=== PATIENT | male | born 1965 ===

== ENCOUNTER 2021-05-21 15:19 | Outpatient (CLI) | payer OTHER, SELFPAY ==
--- NOTE | 2021-06-13 13:44 | WPDHOMESLEEP ---
Sleep Study - Home Unattended Date of Study: 05/21/21 Ordering Provider: Celio Dhaliwal MD Interpreting Provider: Andria Jackson MD Home Sleep Study Type: Apnea Link Air Height: 1.73 m Weight: 79.379 kg Body Mass Index: 26.6 Neck Circumference (inches): 17 [place]: 6 Reason for Sleep Study Constant loud snoring, frequent awakenings at night Sleep History Eyad Luis is a 56-year-old man who has constant awakenings at night for shortness of breath, awakenings at night with heartburn, belching or coughing, loud snoring, trouble sleeping with a cold and gasping during the night. He constantly sweats excessively at night. He frequently notices his heart pounding excessively at night. He occasionally falls asleep during the day, occasionally involuntarily never while driving. He does not have loss of muscle tone with strong emotion. He does not feel paralyzed on waking or falling asleep. He occasionally has vivid dreamlike scenes upon awakening or falling asleep. He does not feel afraid to go to sleep. He occasionally has nightmares. He does not remember his dreams and does not have racing thoughts. He occasionally feels sad or depressed. He frequently has anxiety. He occasionally has muscular tension. He does not notice parts of his body jerking and he does not kick at night. He rarely has crawling and aching feelings in his legs. He occasionally has leg pain at night. He rarely has morning jaw pain. He occasionally is bothered by pain during the day. He rarely is awakened by pain at night. He does not wake up feeling stiff in the morning. He occasionally wakes up with sore achy muscles and pain in the spine. He has fatigue, depression, palpitations and headaches. He takes antacids regularly. Normal bedtime 11:00 p.m. falling asleep within 20 minutes, waking 4 times at night to urinate. He is able to return to sleep 5 minutes. Wakes the morning at 9:00 a.m.. He estimates getting between 9 and 10 hours of non restorative sleep at night. He does not generally take naps in the afternoon or evening. On occasion a short nap may be refreshing. He has frequent morning headaches although he does frequently awaken feeling refreshed. He frequently has memory or concentration problems. Habits: Tobacco 1 pack per day. Caffeine 8-10 servings a day. No alcohol or recreational drugs. [facility] Past Medical History Medical History (Updated 06/13/21 @ 13:57 by Andria Jackson MD) Asthma-COPD overlap syndrome Bipolar depression Deviated septum Diabetes mellitus Heartburn Hyperlipidemia Hypertension Social History Social History (Updated 06/13/21 @ 13:50 by Andria Jackson MD) Smoking status: Current every day smoker Alcohol intake: never Substance use: never Medications Medications: fenofibrate 160 mg a day lisinopril 20 mg a day metformin 500 mg b.i.d. Remeron 30 mg daily oxcarbazepine 600 mg b.i.d. Januvia 100 mg a day Symbicort 160/4.52 puffs twice a day hydrochlorothiazide 25 mg a day Sleep Procedure This test was performed using 4 channel monitoring including respiratory effort channel, snoring channel, heart rate channel, and oxygen saturation channel. This study was scored using [facility] guidelines. Sleep Architecture Not applicable for home sleep test. Respiratory Analysis The recording duration 7 hours 16 minutes. Evaluation duration 6 hours 42 minutes. The apnea-hypopnea index is 34, 52 apneas were measured. There was 1 unclassified apnea, 2% of the total, 45 obstructive apneas 87% the total, 6 central apneas 12% the total and 175 hypopneas. No evidence of [place] respirations. Oximetry Data Mean saturation 79%. The minimum desaturation is 40%. The baseline saturation is 92%. There were 194 desaturations and 263 minute or 71% of the study spent below 88% saturation. Snoring Profile Snoring was present, 1318 episodes. Cardiac Profile Heart rate minimum 56, maximum 80.
[2021-06-13 13:55] VITALS: BMI 26.6
== END 2021-05-22 11:37 | disposition home or self-care (01) ==
LOC: ANHCSM 15:20
PROVIDERS: Visit Provider Otolaryngology
DX: G47.33 Obstructive sleep apnea (adult) (pediatric) (principal)
CPT/HCPCS: 95806